=== PATIENT | male | born 1970 | race Two or more races ===

== ENCOUNTER 2023-04-06 18:35 | Emergency (ER) | payer MEDICAID ==
[~2023-04-06] VITALS: Ht 182.9 cm; Wt 77.1 kg
[2023-04-06 18:42] VITALS: BP 117/77; TEMP 98.2; O2SAT 95
== END 2023-04-06 22:54 | disposition left against medical advice (07) ==
LOC: ER 18:37
DX: F10.129 Alcohol abuse with intoxication, unspecified (principal); Z53.21 Procedure and treatment not carried out due to patient leaving prior to being seen by health care provider; Y90.9 Presence of alcohol in blood, level not specified